=== PATIENT | male | born 1950 | race Caucasian/White ===

== ENCOUNTER → 2018-11-07 | Outpatient (CLI) | payer MEDICARE, BC ==
--- NOTE | 2018-11-07 15:16 | US ---
EXAMINATION TYPE: US kidneys/renal and bladder DATE OF EXAM: 11/07/2018 COMPARISON: NONE CLINICAL HISTORY: N28.1 RENAL CYSTS. History of kidney cysts EXAM MEASUREMENTS: Right Kidney: 12.1 x 6.3 x 5.4 cm Left Kidney: 11.6 x 5.5 x 4.8 cm Right Kidney: 0.5cm echogenic focus inferior pole, 2.8 x 3.1 x 2.8cm cystic area medial superior pole Left Kidney: 0.5cm echogenic focus superior pole, 3.1 x 2.4 x 1.8cm hypoechoic area medial mid pole Bladder: wnl Bilateral Jets seen: yes IMPRESSION: 1 simple appearing cyst superior pole right kidney. 2. Nonobstructing inferior pole right renal stone and nonobstructing renal stone superior pole left k idney. 3. Mild prominence of the pelvis versus peripelvic cysts. No hydronephrosis is evident.
== END | disposition home or self-care (01) ==
LOC: RADUSWWP 12:50
PROVIDERS: ATTEND Internal Medicine
DX: N28.1 Cyst of kidney, acquired (principal); N20.0 Calculus of kidney
CPT/HCPCS: 76770

== ENCOUNTER → 2021-05-24 | Outpatient (CLI) | payer MEDICARE, BC ==
--- NOTE | 2021-05-24 08:50 | US ---
EXAMINATION TYPE: US abd limited kidneys/bladder DATE OF EXAM: 05/24/2021 COMPARISON: Prev renal only CLINICAL HISTORY: R94.5 ABN LIVER FUNCTION, R68.89 RENAL CYST. H/O renal cysts, abnormal liver functi on EXAM MEASUREMENTS: Liver Length: 14.7 cm Gallbladder Wall: 0.3 cm CBD: 0.5 cm Right Kidney: 11.5 x 5.5 x 5.0 cm Left Kidney: 12.1 x 5.2 x 5.8 cm Difficult pt to scan, pt has prominent rib cage and overlying bowel gas Pancreas: Obscured by bowel gas Liver: Visualized portions appeared wnl Gallbladder: wnl CBD: wnl Right Kidney: Multicystic, largest cyst lower pole= 3.9 x 4.3 x 4.0 cm Left Kidney: Parapelvic cyst= 3.2 x 1.9 x 2.4 cm Bladder: wnl Bilateral Jets Seen Yes No shadowing renal calculi or hydronephrosis. IMPRESSION: 1. The pancreas is obscured due to overlying bowel gas. 2. Mild obscuration of portions of the liver. Otherwise, the liver is unremarkable. 3. No gallstones, sludge or pericholecystic fluid. The bladder wall is within normal limits. No Seng y's sign. Common duct is within normal limits. 3. Right lower pole renal cyst measuring 4.3 cm. Multiple other right renal cysts. No hydronephrosis. 4. Left parapelvic cyst measuring up to 3.2 cm. No hydronephrosis.
== END | disposition home or self-care (01) ==
LOC: RADUSWWP 07:24
PROVIDERS: ATTEND Internal Medicine
DX: N28.1 Cyst of kidney, acquired (principal)
CPT/HCPCS: 76705; 76770

== ENCOUNTER → 2021-08-15 | Outpatient (CLI) | payer MEDICARE, BC ==
--- NOTE | 2021-08-15 10:08 | CT ---
EXAMINATION TYPE: CT abdomen wo/w con DATE OF EXAM: 08/15/2021 COMPARISON: Limited abdominal ultrasound May 24, 2021 and renal ultrasound November 07, 2018 HISTORY: Renal cysts, prior abnormal ultrasound CT DLP: 1518 mGycm, Automated Exposure Control for Dose Reduction was Utilized. CONTRAST: CT scan of the abdomen is performed with oral and without and with IV Contrast, patient injected with 100 ml mL of Isovue 300. FINDINGS: LUNG BASES: Cardiomegaly with mild bibasilar linear scarring and/or atelectasis. Moderate right great er than left biatrial dilatation. LIVER/GB: There is 2.4 x 1.8 cm thin-walled cyst left hepatic lobe image 17 series 7 clearly seen on ultrasound. Gallbladder has distended margins without surrounding inflammatory change. No ductal dila tation noted. PANCREAS: Mild generalized fat replaced atrophy. SPLEEN: No significant abnormality is seen. ADRENALS: No significant abnormality is seen. KIDNEYS: Noncontrast images show approximately 4-5 scattered left renal calculi and a scattered right renal calculi. Calculi measure up to 4 mm long axis. Postcontrast images show symmetric cord especia lly uptake and excretion with central thin-walled simple parapelvic cysts bilaterally. There is some cortical thinning bilaterally. There is additional 4.0 x 3.5 cm partially exophytic thin-walled cyst anteriorly right kidney upper to mid pole level. BOWEL: Oral contrast does not reach level of the terminal ileum. No suspicious small or large bowel d ilatation. Normal-appearing appendix from cecum. Distal colonic diverticula. LYMPH NODES: No greater than 1cm abdominal lymph nodes are appreciated. OSSEOUS STRUCTURES: Severe disc space narrowing lumbosacral junction. Vacuum disc phenomenon L4-L5 le tae. Slight scoliotic curvature and coronal images. Facet arthropathy lower lumbar levels. OTHER: There is small caliber celiac artery with splenic artery arising from the larger caliber SMA. Normal variant. IMPRESSION: 1. There are nonobstructing renal calculi bilaterally on CT is not clearly seen on ultrasound. Eviden ce of chronic medical renal disease with central simple parapelvic cysts in both kidneys confirm. No hydronephrosis bilaterally. No concerning solid or cystic renal mass. 2. There is simple appearing benign 2.4 cm thin-walled cyst left hepatic lobe. No worrisome intrahepa tic mass or intrahepatic ductal dilatation.
== END | disposition home or self-care (01) ==
LOC: RADCTMAIN 08:11
PROVIDERS: ATTEND Urology
DX: N20.0 Calculus of kidney (principal); N28.1 Cyst of kidney, acquired; K76.89 Other specified diseases of liver
CPT/HCPCS: 82565; 84520; 74170; 36415; Q9967

== ENCOUNTER → 2021-10-23 | Outpatient (CLI) | payer MEDICARE, BC | END | disposition home or self-care (01) | LOC: LABWHC1 07:25 | PROVIDERS: ATTEND Urology | DX: N40.3 Nodular prostate with lower urinary tract symptoms (principal) | CPT/HCPCS: 36415; 84153 ==

== ENCOUNTER → 2023-10-24 | Outpatient (CLI) | payer MEDICARE ==
[2023-10-24 08:31] LABS: NT-Pro-B-Type Natriuretic Pept 2130 pg/mL
[2023-10-24 11:10] LABS: HCT 42.7 % (39.6-50.0); HGB 14.7 g/dL (13.0-17.0); MCH 31.1 pg (27.0-32.0); MCHC 34.4 g/dL (32.0-37.0); MCV 90.3 FL (80.0-97.0); NRBC Per 100 WBC 0 X 10*3/uL (0.00-0.01); Platelet Count 196 X 10*3/uL (140-440); RBC 4.73 X 10*6/uL (4.40-5.60); WBC 9.41 X 10*3/uL (4.50-10.00)
[2023-10-24 13:03] LABS: ALT 29 U/L (4-49); AST 25 U/L (17-59); African American GFR (CKD) 65 (>60 ml/min/1.73 sqM); Albumin 3.8 g/dL (3.5-5.0); Albumin/Globulin Ratio 1.4; Alkaline Phosphatase 104 U/L (38-126); Anion Gap 11 mmol/L; Blood Urea Nitrogen 27 mg/dL (9-20); Calcium 9.2 mg/dL (8.4-10.2); Carbon Dioxide 21 mmol/L (22-30); Chloride 106 mmol/L (98-107); Globulin 2.7 g/dL; Glucose 163 mg/dL (74-99); Non-African American GFR(CKD) 56 (>60 ml/min/1.73 sqM); Potassium 4.2 mmol/L (3.5-5.1); Sodium 138 mmol/L (137-145); Total Bilirubin 0.7 mg/dL (0.2-1.3); Total Protein 6.5 g/dL (6.3-8.2)
[2023-10-24 13:19] LABS: T4, Free (Free Thyroxine) 1.26 ng/dL (0.78-2.19)
[2023-10-24 16:50] LABS: Iron 67 UG/DL (65-175)
== END | disposition home or self-care (01) ==
LOC: LABWHC1 07:23
PROVIDERS: ATTEND Internal Medicine
DX: R53.83 Other fatigue (principal); R06.00 Dyspnea, unspecified
CPT/HCPCS: 36415; 80053; 82607; 83540; 83880; 84439; 84443; 85027

== ENCOUNTER → 2023-10-24 | Outpatient (CLI) | payer MEDICARE ==
--- NOTE | 2023-10-24 10:34 | XR ---
"EXAMINATION TYPE: XR chest 2V DATE OF EXAM: 10/24/2023 COMPARISON: NONE TECHNIQUE: PA and lateral views submitted. HISTORY: Shortness of breath FINDINGS: The lungs are clear and there is no pneumothorax, pleural effusion, or focal pneumonia. Heart is mil dly enlarged but no overt failure. Osseous structures demonstrate hypertrophic and degenerative garrett es of the spine. There is ectasia of the aorta. Pleural-based thickening noted. IMPRESSION: 1. COPD with aortic ectasia. Aneurysm not excluded. Recommend follow-up CT chest. A Yellow level critical message alert has been initiated for Julien Vital MD via the [employer] [facility] | Critical Results System on 10/24/2023 10:31 AM. This message alert has been sent to Julien manjarrez MD via the preferences provided by the clinician for the receipt of Radiology Critical Findings. Message ID [id number]."
--- NOTE | 2023-10-24 10:44 | XR ---
EXAMINATION TYPE: XR sternum DATE OF EXAM: 10/24/2023 COMPARISON: NONE HISTORY: Pain TECHNIQUE: 2 views submitted FINDINGS: There appears to be a subtle focal cortical step-off near the site of fluid in the lower ma rgin of the sternum suspicious for fracture. IMPRESSION: There appears to be a subtle focal cortical step-off near the site of fluid in the lower margin of the sternum suspicious for fracture
== END | disposition home or self-care (01) ==
LOC: RADXRMAIN 07:00
PROVIDERS: ATTEND Internal Medicine
DX: J44.9 Chronic obstructive pulmonary disease, unspecified (principal); I77.819 Aortic ectasia, unspecified site; S29.9XXA Unspecified injury of thorax, initial encounter; R07.2 Precordial pain; X58.XXXA Exposure to other specified factors, initial encounter
CPT/HCPCS: 71046; 71120

== ENCOUNTER → 2023-11-15 | Outpatient (CLI) | payer MEDICARE ==
[2023-11-15 10:45] LABS: African American GFR (CKD) 70 (>60 ml/min/1.73 sqM); Blood Urea Nitrogen 25 mg/dL (9-20); Non-African American GFR(CKD) 60 (>60 ml/min/1.73 sqM)
--- NOTE | 2023-11-15 12:11 | CT ---
EXAMINATION: CT SCAN OF THE CHEST WITHOUT AND WITH INTRAVENOUS CONTRAST DATE OF EXAM: 11/15/2023 11:21 AM HISTORY: Shortness of breath. Recent sternal fracture. COMPARISON: None. TECHNIQUE: CT examination of the chest was performed following the intravenous administration of iodi nated contrast. CT dose lowering techniques were used, to include: automated exposure control, adjust ment for patient size, and/or use of iterative reconstruction. FINDINGS: CHEST: Lungs: Normal. Pleura: Normal. Mediastinum And Eliane: Normal. 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 There is no evidence of dissection. There is moderate cardiomegaly. Chest Wall: Normal. Upper Abdomen: Partially included cyst is seen within the right kidney. There is a simple cyst also s een in left lobe of the liver. The visualized upper abdomen otherwise appears unremarkable. MUSCULOSKELETAL: No definitive fractures are identified. The sternum appears normal. IMPRESSION: 1. No acute abnormality within the chest. 2. 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 3. Cardiomegaly with mild coronary artery calcifications. Thank you for the referral of this patient. This exam was interpreted by an [employer] certified radiologist with subspecialty fellowship training. If there are any questions regarding this exam please feel free to contact a radiologist directly at [phone]. Slot
== END | disposition home or self-care (01) ==
LOC: RADCTMAIN 10:09
PROVIDERS: ATTEND Family Medicine
DX: I77.810 Thoracic aortic ectasia (principal); I11.9 Hypertensive heart disease without heart failure; I25.10 Atherosclerotic heart disease of native coronary artery without angina pectoris; I10 Essential (primary) hypertension; T73.3XXA Exhaustion due to excessive exertion, initial encounter; R93.89 Abnormal findings on diagnostic imaging of other specified body structures
CPT/HCPCS: 82565; 84520; 71270; 36415; Q9967

== ENCOUNTER → 2024-01-16 | Outpatient (CLI) | payer MEDICARE ==
[2024-01-16 18:53] LABS: HCT 43.2 % (39.6-50.0); HGB 14.6 g/dL (13.0-17.0); MCH 30.9 pg (27.0-32.0); MCHC 33.8 g/dL (32.0-37.0); MCV 91.3 FL (80.0-97.0); Mean Platelet Volume 11.4 FL (9.5-12.2); NRBC Per 100 WBC 0 X 10*3/uL (0.00-0.01); Platelet Count 198 X 10*3/uL (140-440); RBC 4.73 X 10*6/uL (4.40-5.60); RDW 13.1 % (11.5-14.5); WBC 6.12 X 10*3/uL (4.50-10.00)
[2024-01-16 20:58] LABS: Blood Urea Nitrogen 16.7 mg/dL (9.0-27.0); Carbon Dioxide 22.5 mmol/L (21.6-31.8); Chloride 106 mmol/L (96-109); Potassium 4.4 mmol/L (3.5-5.5); Sodium 140 mmol/L (135-145)
== END | disposition home or self-care (01) ==
LOC: LABPAT 15:20
PROVIDERS: ATTEND Internal Medicine
DX: R07.9 Chest pain, unspecified (principal); Z01.818 Encounter for other preprocedural examination
CPT/HCPCS: 80051; 82565; 84520; 85027

== ENCOUNTER 2024-01-21 09:43 | Day surgery (SDC) | payer MEDICARE ==
[~2024-01-21 09:43] MED LIST: ALPRAZolam 0.5 MG TAB PO PRN; HEPARIN SODIUM,PORCINE (1 ML) 2,500 UNIT in SODIUM CHLORIDE 0.9% 250 ML IRRIGATION PRN; HEPARIN SODIUM,PORCINE 10,000 UNIT in SODIUM CHLORIDE 0.9% 1,000 ML IRRIGATION PRN; NITROGLYCERIN SL TABS 0.4 MG TAB SUBLINGUAL PRN
[2024-01-21] MEDS: ASPIRIN 325 MG TAB PO STA (10:07)
[2024-01-21] MEDS: SODIUM CHLORIDE 0.9% 1,000 ML in EMPTY BAG 1 BAG IV SCH (10:09)
[2024-01-21 10:12] LABS: Glucose,Whole Blood 85 mg/dL (70-110)
[2024-01-21] MEDS: ALPRAZolam 0.25 MG TAB PO PRN (10:14)
[2024-01-21 10:18] VITALS: TEMP 98.2
[2024-01-21] MEDS ORDERED: LIDOCAINE 1% INJ 10MG/ML (20 ML MDV) ONE (12:13)
[2024-01-21] MEDS ORDERED: fentaNYL (PF) 50 MCG/ML 2 ML AMP ONE (12:13)
[2024-01-21] MEDS ORDERED: HEPARIN SODIUM 1,000 UN/ML (10ML VL) ONE (12:13)
[2024-01-21] MEDS ORDERED: VERAPAMIL 2.5 MG/ML 2 ML AMP ONE (12:28)
[2024-01-21] MEDS: LIDOCAINE 1% INJ 10MG/ML (20 ML MDV) SQ ONE (12:44)
[2024-01-21] MEDS: MIDAZOLAM 2 MG/2 ML VIAL IVP ONE (12:47)
[2024-01-21] MEDS: fentaNYL (PF) 50 MCG/1 ML VIAL IVP ONE (12:47)
[2024-01-21] MEDS: HEPARIN SODIUM 1,000 UN/ML (10ML VL) IVP ONE (13:05)
[2024-01-21] MEDS: IOPAMIDOL-370 100ML BTL INTRATHECA ONE (13:15)
[2024-01-21] MEDS: SODIUM CHLORIDE 0.9% 1,000 ML IV ONE (13:17)
[2024-01-21 13:23] LABS: O2 Sat Blood Gas 72.3 %
--- NOTE | 2024-01-21 14:09 | P.CARDCATH ---
Description of Procedure: PROCEDURES PERFORMED: Left and right heart catheterization, bilateral coronary angiography, ultrasound guided arterial and venous access INDICATION: Abnormal stress test, cardiomyopathy, heart failure CONSENT:I have discussed the risks, benefits and alternative therapies for the above-mentioned procedure and for both sedation/analgesia as well as necessary blood product administration, if indicated, as they pertain to this patient. The patient has indicated understanding and acceptance of the risks and procedures discussed. PROCEDURE: After the risks, benefits and alternatives of the above mentioned procedure explained in detail with the patient, informed consent was obtained. Patient was taken to the catheterization lab and prepped and draped in usual fashion. Ultrasound guidance was used to assess for arterial access. 1% lidocaine was used to anesthetize the right radial artery and right brachial area. A 6-Vincentian sheath was placed in the right radial artery and right brachial vein using modified Seldinger technique and ultrasound guidance. A 6 Vincentian Loving-Heber catheter was inserted into the right atrium, right ventricle, pulmonary artery, pulmonary capillary wedge pressure position and pressure and oxygen saturation measurements were obtained. Thermodilution was performed. Left coronary angiography was performed with a 5-Vincentian JL 3.5 catheter and right coronary angiography was performed with a 5-Vincentian AR2 catheter in various views. A 5-Vincentian FR5 catheter was inserted into the left ventricle and pressure measurements were obtained. The right radial sheath was removed and a TR band was placed with hemostasis achieved. The patient tolerated the procedure well. Patient was transported back to the post catheterization holding area in stable condition. Conscious Sedation: Patient was monitored under the direct supervision of myself for conscious sedation using Versed and fentanyl for a total duration of 32 minutes HEMODYNAMICS: Aortic: 118/71 LV: 102/5, LVEDP 12 Pulmonary capillary wedge pressure: 14 PA pressure: 31/15 RV: 24/1 RA: 1 PA oxygen saturation: 72% RA oxygen saturation: 72% Right radial action saturation: 99% Cardiac output by thermodilution: 4.2 L/min Cardiac index by thermal dilution: 1.95 L/min/m Cardiac output by Ag: 6.0 L/min Cardiac index by Ag: 2.7 L/min/m SELECTIVE CORONARY ARTERIOGRAPHY: LEFT MAIN: The left main is a large caliber vessel which bifurcates into the LAD and circumflex. There is no significant stenosis. LEFT ANTERIOR DESCENDING CORONARY ARTERY: LAD is a large caliber vessel which stops short of the apex. There is mild 20 to 30% mid LAD stenosis and otherwise mild luminal irregularities LEFT CIRCUMFLEX CORONARY ARTERY: Left circumflex is a moderate caliber vessel without significant stenosis. RIGHT CORONARY ARTERY: The right coronary artery is a large caliber vessel which gives off a PDA and PLV branch and is the dominant vessel. The PLV covers much of the circumflex and apex territory. There is no significant stenosis. FINAL IMPRESSION: 1. Relatively normal coronary arteries with only mild 20 to 30% mid LAD sten osis 2. Normal left and borderline low right sided filling pressures 3. Borderline cardiac output/cardiac index PLAN: 1. Aggressive risk factor modification per most recent ACC/AHA guidelines. 2. Consider rhythm control with majority of symptoms likely attributed to heart failure with borderline cardiac output/cardiac index. Decrease metoprolol for more compensatory tachycardia with exercise given lightheadedness with exertion on higher dose.
[2024-01-21 14:34] VITALS: RESP 16
[2024-01-21 16:40] VITALS: BP 117/79; PULSE 59
== END 2024-01-21 16:24 | disposition home or self-care (01) ==
LOC: CATHCVL 09:43
PROVIDERS: ATTEND Internal Medicine
DX: I35.0 Nonrheumatic aortic (valve) stenosis (principal); I13.0 Hypertensive heart and chronic kidney disease with heart failure and stage 1 through stage 4 chronic kidney disease, or unspecified chronic kidney disease; I50.9 Heart failure, unspecified; N18.9 Chronic kidney disease, unspecified; I48.19 Other persistent atrial fibrillation; E78.5 Hyperlipidemia, unspecified; I42.9 Cardiomyopathy, unspecified; I27.20 Pulmonary hypertension, unspecified; Z79.899 Other long term (current) drug therapy; Z79.01 Long term (current) use of anticoagulants
CPT/HCPCS: 93460; 76937; 85018; 82810; C1769 ×3; C1894; C1751; J2250; J2001; J1644; Q9967; J3010

== ENCOUNTER → 2024-02-28 | Outpatient (CLI) | payer MEDICARE ==
[2024-02-28 15:46] LABS: HCT 45.5 % (39.6-50.0); HGB 14.7 g/dL (13.0-17.0); MCH 30.6 pg (27.0-32.0); MCHC 32.3 g/dL (32.0-37.0); MCV 94.8 FL (80.0-97.0); NRBC Per 100 WBC 0 X 10*3/uL (0.00-0.01); Platelet Count 191 X 10*3/uL (140-440); RDW 13.3 % (11.5-14.5); WBC 5.96 X 10*3/uL (4.50-10.00)
[2024-02-28 16:14] LABS: Albumin 4.3 g/dL (3.8-4.9); BUN/Creat Ratio 12.12 Ratio (12.00-20.00); Blood Urea Nitrogen 19.4 mg/dL (9.0-27.0); Calcium 9.8 mg/dL (8.7-10.3); Carbon Dioxide 23.6 mmol/L (21.6-31.8); Chloride 108 mmol/L (96-109); Glucose 100 mg/dL (70-110); Phosphorus 4.4 mg/dL (2.4-5.1); Potassium 4.6 mmol/L (3.5-5.5); Sodium 143 mmol/L (135-145)
== END | disposition home or self-care (01) ==
LOC: LABWHC1 08:03
PROVIDERS: ATTEND Internal Medicine
DX: I50.9 Heart failure, unspecified (principal); I48.91 Unspecified atrial fibrillation; R06.02 Shortness of breath
CPT/HCPCS: 36415; 80069; 84439; 84443; 85027

== ENCOUNTER 2024-03-02 11:48 | Day surgery (SDC) | payer MEDICARE ==
[2024-03-02] MEDS: LACTATED RINGERS 1,000 ML IV ONE (12:12)
[2024-03-02 12:20] VITALS: TEMP 97
[2024-03-02 12:36] LABS: Glucose,Whole Blood 91 mg/dL (70-110)
[2024-03-02] MEDS ORDERED: PROPOFOL 10 MG/ML 20 ML VIAL IV ONE (12:52)
[2024-03-02] MEDS: LACTATED RINGERS 900 ML IV ONE (12:55)
--- NOTE | 2024-03-02 13:37 | P.PCN ---
Description of Procedure: Procedure performed: Synchronized cardioversion Moderate conscious sedation: Moderate conscious sedation was supplied by anesthesia, see separate report. Complications: none Indications: Afib, taking anticoagulation without missing dose for > 30 days PROCEDURE: After the risks, benefits and alternatives of the above mentioned p rocedure was explained in detail with the patient, informed consent was obtained. Patient was brought to the lab in a fasting state. Patient was given sedation by anesthesia, see separate report. Patient had been on anticoagulation for >30 days without fail. Patient underwent synchronized cardioversion x 1 with 200J with resultant sinus rhythm. Patient tolerated the procedure well. Patient was transferred to the post procedure area in stable and satisfactory condition.
[2024-03-02 14:26] VITALS: BP 151/94; PULSE 61; RESP 16
[2024-03-02 14:26] LABS: Glucose,Whole Blood 99 mg/dL (70-110)
== END 2024-03-02 14:38 | disposition home or self-care (01) ==
LOC: OR 11:48
PROVIDERS: ATTEND Internal Medicine
DX: I48.91 Unspecified atrial fibrillation (principal); E78.5 Hyperlipidemia, unspecified; I25.10 Atherosclerotic heart disease of native coronary artery without angina pectoris; I12.9 Hypertensive chronic kidney disease with stage 1 through stage 4 chronic kidney disease, or unspecified chronic kidney disease; I50.9 Heart failure, unspecified; N18.9 Chronic kidney disease, unspecified; I42.9 Cardiomyopathy, unspecified; I27.20 Pulmonary hypertension, unspecified; I35.0 Nonrheumatic aortic (valve) stenosis; Z79.01 Long term (current) use of anticoagulants; Z79.899 Other long term (current) drug therapy
CPT/HCPCS: 92960; J2704

== ENCOUNTER → 2024-03-10 | Outpatient (CLI) | payer MEDICARE ==
--- NOTE | 2024-03-13 10:16 | CT ---
EXAMINATION TYPE: CT abdomen pelvis wo con DATE OF EXAM: 03/10/2024 COMPARISON: 08/15/2021 INDICATION: flank pain DLP: 854.1 mGycm, Automated exposure control for dose reduction was used. CONTRAST: 0 mL of Isovue 300. Study performed without Oral Contrast TECHNIQUE: Axial images were obtained from above the diaphragm to the pubic rami in the axial plane a t 5 mm thick sections. Reconstructed images are reviewed on the computer in the coronal plane. FINDINGS: Limited CT sections are obtained the lung bases. The lung bases are clear. CT ABDOMEN: Liver: There is a 2.1 cm cyst in the left lobe liver. Additional 1.3 cm cyst adjacent to the ligament um teres.r Spleen: Normal Pancreas: Normal Adrenal glands: The adrenal glands are normal. Gallbladder: Normal Kidneys: No masses are evident. No hydronephrosis is present. There is a 5.1 cm cyst anterior mid r ight kidney. Peripelvic cysts are present on the left. A nonobstructing posterior inferior renal ston e is present left. Small peripelvic cysts may be present on the right. Delayed images were obtained through the kidneys, which remain unremarkable. Aorta: Vascular calcification is within the aorta. Inferior vena cava: Normal. CT PELVIS: Loops of bowel within the abdomen and pelvis are normal. Diverticular changes are within the sigmoid colon. There are loops of bowel which are incompletely distended or lack oral contrast limiting th eir evaluation. Appendix: Normal as visualized. Urinary bladder: Normal. Genitourinary structures: Prostate Somewhat prominent Osseous structures: No suspicious lytic or sclerotic lesions. Degenerative disc changes and vacuum di sc phenomenon is present L4-5 and L2-3 IMPRESSION: 1. Diverticulosis without acute diverticulitis. 2. Nonobstructing left renal stone 3. Renal and hepatic cysts
== END | disposition home or self-care (01) ==
LOC: RADCTMAIN 11:37
PROVIDERS: ATTEND Family Medicine
DX: N20.0 Calculus of kidney (principal); K76.89 Other specified diseases of liver; K57.90 Diverticulosis of intestine, part unspecified, without perforation or abscess without bleeding
CPT/HCPCS: 74176